=== PATIENT | male | born 1965 | race Caucasian/White ===

== ENCOUNTER 2016-10-21 09:28 | Observation (INO) | payer BC ==
[~2016-10-21] VITALS: Ht 170.2 cm; Wt 86.1 kg
[~2016-10-21 09:28] MED LIST: NEXIUM20 MG PO; SIMVASTATIN20 MG PO
[2016-10-21 10:46] LABS: MCH 30.5 PG (29.0-34.0); MCHC 34.5 G/DL (30.0-36.0); MCV 88.4 FL (86-99); MEAN PLAT.VOLUME 10.7 uM^3 (9.0-12.4); PLATELET COUNT 165 K/uL (156-360); RBC DIS.WIDTH-CV 12.6 % (11.8-14.6); RED BLOOD COUNT 5.54 M/uL (4.00-5.50); WHITE BLOOD COUNT 6.6 K/uL (4.1-10.2)
[2016-10-21 10:59] LABS: CHLORIDE 103 mEq/L (99-109); POTASSIUM 4.2 mEq/L (3.7-5.4); SODIUM 136 mEq/L (136-147)
[2016-10-21 11:01] LABS: GLUCOSE 106 mg/dL (70-99)
[2016-10-21 11:02] LABS: ANION GAP 11 MEQ/L (2-14)
[2016-10-21 11:05] LABS: GFR ESTIMATE (CALCULATED) > 59 mL/min/; UREA NITROGEN (BUN) 17 mg/dL (9-23)
[2016-10-21 11:14] LABS: TROP-I INTERPRETATION NEGATIVE; TROPONIN-I < 0.01 ng/mL (0.0-0.30)
[2016-10-21 13:29] LABS: TROP-I INTERPRETATION NEGATIVE; TROPONIN-I < 0.01 ng/mL (0.0-0.30)
[2016-10-21] MEDS ORDERED: ASPIR-LOW81 MG PO (14:21)
[2016-10-21] MEDS ORDERED: ONE-A-DAY MAXI1 EACH PO (14:22)
[2016-10-21 14:55] LABS: TOTAL BILIRUBIN 0.9 mg/dL (0.0-1.0)
[2016-10-21 14:56] LABS: ALKALINE PHOSPHATASE 79 IU/L (3-129)
[2016-10-21 14:58] LABS: DIRECT BILIRUBIN 0.3 mg/dL (0.0-0.3)
[2016-10-21 14:59] LABS: LIPASE 8 U/L (1.0-51.0)
[2016-10-21 16:16] VITALS: BP 111/66
[2016-10-21 19:36] LABS: TROP-I INTERPRETATION NEGATIVE; TROPONIN-I < 0.01 ng/mL (0.0-0.30)
[2016-10-21 21:48] VITALS: BP 104/59
[2016-10-22 00:01] VITALS: BP 110/55
[2016-10-22 02:47] LABS: TROP-I INTERPRETATION NEGATIVE; TROPONIN-I < 0.01 ng/mL (0.0-0.30)
[2016-10-22 03:36] VITALS: BP 110/67
[2016-10-22 05:17] LABS: CHLORIDE 107 mEq/L (99-109); SODIUM 136 mEq/L (136-147)
[2016-10-22 05:18] LABS: GLUCOSE 104 mg/dL (70-99)
[2016-10-22 05:20] LABS: ANION GAP 10 MEQ/L (2-14)
[2016-10-22 05:22] LABS: GFR ESTIMATE (CALCULATED) > 59 mL/min/
[2016-10-22 05:23] LABS: UREA NITROGEN (BUN) 15 mg/dL (9-23)
[2016-10-22] MEDS ORDERED: ZOFRAN4 MG PO (08:57)
== END 2016-10-22 11:53 | disposition home or self-care (01) ==
LOC: EME 09:28 → EDOF 14:45 → 5WEST 14:45 → ENRESERV 14:48 → 5WEST 15:56
PROVIDERS: Internal Medicine; Physician Assistant Medical
DX: R07.9 Chest pain, unspecified (principal); R11.2 Nausea with vomiting, unspecified; R06.02 Shortness of breath; K21.9 Gastro-esophageal reflux disease without esophagitis; E78.5 Hyperlipidemia, unspecified; Z82.49 Family history of ischemic heart disease and other diseases of the circulatory system; Z88.0 Allergy status to penicillin
CPT/HCPCS: 71020; 71275; 80048; 80076; 83690; 84484; 85027; 85379; 93005; 99281; 99284; G0378; J1650; J7030